=== PATIENT | male | born 1960 | race Caucasian/White ===

== ENCOUNTER → 2024-08-16 06:20 | Day surgery (SDC) | payer BC, SELFPAY | LOC: GI 06:20 | PROVIDERS: ATTENDING PHYSICIAN Surgery | DX: Z12.11 Encounter for screening for malignant neoplasm of colon (principal); Z86.0102 Personal history of hyperplastic colon polyps | CPT/HCPCS: G0105 ==

== ENCOUNTER → 2025-04-21 17:31 | Outpatient (REF) | payer BC, SELFPAY | LOC: MRI 3T 17:31 | PROVIDERS: ATTENDING PHYSICIAN Specialist; FAMILY PHYSICIAN Nurse Practitioner Adult Health | DX: R97.20 Elevated prostate specific antigen [PSA] (principal) | CPT/HCPCS: 72197; A9575 ==

== ENCOUNTER 2025-06-26 21:14 | Emergency (ER) | payer BC, SELFPAY ==
[2025-06-26 21:17] VITALS: BP 149/90
--- NOTE | 2025-06-26 23:37 | ED.GENMED ---
History of Present Illness
General
Chief Complaint: Skin Problem
Source: patient
Time Seen by Provider: 06/26/25 23:15
History of Present Illness
History of Present Illness:
64-year-old male presenting to the emergency department for evaluation after he was reaching in a drawer to obtain a bottle [employer] but accidentally cut his left thumb on a pizza cutter. No other injuries were sustained. Patient is right-hand
dominant. He is unsure if his tetanus is up-to-date but is declining tetanus vaccine here.
Past History
Past History
ED Past Medical History: Cancer
ED Past Surgical History: None
Social History
Tobacco: Non-smoker
Alcohol: Occasional
Drug: None
Personal:
Living: with family
Review of Systems
Review of Systems
All Other Systems: ROS reviewed and negative except as documented in HPI and ROS
Phy Exam
Physical Exam
Physical Exam:
GENERAL: Alert , in no apparent distress
EYE: conjunctiva clear
Head: Normocephalic atraumatic
NECK: Supple,
ENT: mmm.
LUNGS: no acute respiratory distress
NEUROLOGICAL: Alert and oriented
SKIN: Warm and dry, circular 4 mm superficial laceration to the tip of the left thumb, dressing in place, bleeding well-controlled with pressure
MUSCULOSKELETAL: well perfused.
PSYCH: Normal and appropriate interaction.
Scores
Heart Failure Risk
Heart Failure Risk Score: Not Applicable
Heart Score for Chest Pain Patients
STEMI patient?: Not applicable
Withdrawal Assessment of Alcohol
Withdrawal Assessment Completed?: Not applicable
Course
Vital Signs
Initial and Last Documented VS:
Initial Vital Signs
Temp Pulse Resp BP Pulse Ox
97.4 F 81 16 149/90 95
06/26/25 21:17 06/26/25 21:17 06/26/25 21:17 06/26/25 21:17 06/26/25 21:17
Last Documented Vital Signs
Temp Pulse Resp BP Pulse Ox
97.4 F 81 16 149/90 95
06/26/25 21:17 06/26/25 21:17 06/26/25 21:17 06/26/25 21:17 06/26/25 23:37
Procedures
Laceration Closure
Left Thumb:
Status of Wound: clean
Size of Wound in cm: 0.4
Description of Wound Edges: sharp
Preparation: cleaned with saline
Type of Closure: Dermabond-skin glue
MDM/Problems Addressed
Differential Diagnosis Includes:
Superficial skin tear
no concern for fracture or Ligamentous/nerve injury
MDM/Problems Addressed:
64-year-old male presented to ER for evaluation of laceration sustained to the left thumb. Wound repaired as above without any difficulty. Discussed wound care with patient. Stable for discharge home and aware of return precautions to the ER.
*Pulse Oximetry
SaO2: 95
Oxygen Mode of Delivery: Room air
Patient hypoxic: no
*Critical Care Note
Total Time (30-74mins, 75-104mins- exclusive of procedures): Not Applicable
ED Attending Note
-
Portions of this chart may have been created with voice recognition software.� Occasional wrong word or��sound alike� substitutions may have occurred due to the inherent limitations of voice recognition software.
Discharge Plan
Departure
Patient Disposition: Home (Routine Discharge)
Date of Disposition: 06/26/25
Time of Disposition: 23:37
Patient with high blood pressure during this ER visit?: Yes
Discharge Problem:
Laceration of left thumb
Instructions: Wound Care (DC)
Referrals:
Gina Porter CRNP [Family Provider, Internal Medicine]
Interventions
Interventions:
*Risk Screen - Suicide Last Done: 06/26/25 21:17
*General Assessment Last Done: 06/26/25 21:17
*Neglect/Abuse Screening Last Done: 06/26/25 21:17
*ED- Fall Risk Assessment Last Done: 06/26/25 21:17
*ED COVID-19 Vaccine History Last Done: 06/26/25 21:17
Discharge Date and Time
Print Language: SWAZI
[2025-06-26 23:55] VITALS: BP 134/93
--- NOTE | 2025-06-27 00:55 | EDRN ---
dressed area. Pt has a small superficial 'C' shaped laceration L thumb drew surface.
== END 2025-06-26 23:55 | disposition home or self-care (01) ==
LOC: EMR 21:14
PROVIDERS: EMERGENCY PHYSICIAN Emergency Medicine; FAMILY PHYSICIAN Nurse Practitioner Adult Health
DX: S61.012A Laceration without foreign body of left thumb without damage to nail, initial encounter (principal); W26.8XXA Contact with other sharp object(s), not elsewhere classified, initial encounter
CPT/HCPCS: 99282; 12001